=== PATIENT | female | born 1970 | race Caucasian/White ===

== ENCOUNTER 2017-10-31 01:32 | Emergency (ER) | payer BC, OTHER ==
[2017-10-31] MEDS: NAPROXEN 250 MG TAB PO (04:09)
== END 2017-10-31 04:12 | disposition home or self-care (01) ==
LOC: M ED 01:32
DX: M79.672 Pain in left foot (principal); Z79.899 Other long term (current) drug therapy; Z88.6 Allergy status to analgesic agent
CPT/HCPCS: 73630

== ENCOUNTER 2020-12-02 21:46 | Emergency (ER) | payer BC ==
[~2020-12-02] VITALS: Ht 157.5 cm; Wt 88.6 kg
[~2020-12-02 21:46] MED LIST: NAPR-837 PO; PHEN-239 PO; TOPA1TAB PO
[2020-12-02] MEDS ORDERED: PERCOCET 5MG/325MG TAB PO ONE (22:15)
--- NOTE | 2020-12-03 00:14 | REPVR ---
PROCEDURE INFORMATION: Exam: XR Sacrum and Coccyx, 2 or More Views Exam date and time: 12/02/2020 10:47 PM Age: 50 years old Clinical indication: Pain in coccyx area; Additional info: Fall, pain TECHNIQUE: Imaging protocol: XR of the sacrum and coccyx, 2 or more views. COMPARISON: No relevant prior studies available. FINDINGS: Bones/joints: Normal. No acute fracture. Soft tissues: Normal. Other findings: Surgical clips project over the right pelvis. IMPRESSION: No acute findings. Electronically signed by: Ti Quiroz On 12/03/2020 00:14:07 AM
[2020-12-03 01:00] VITALS: BP 120/80
[2020-12-03] MEDS ORDERED: OXYCODONE/APAP 5MG/325MG(BULK FOR ED) 1 TABLET PO ONE (01:25)
== END 2020-12-03 01:43 | disposition home or self-care (01) ==
LOC: M ED 21:46
DX: S30.0XXA Contusion of lower back and pelvis, initial encounter (principal); W17.89XA Other fall from one level to another, initial encounter; Y92.89 Other specified places as the place of occurrence of the external cause; Z88.8 Allergy status to other drugs, medicaments and biological substances